=== PATIENT | male | born 1985 | race Caucasian/White ===

== ENCOUNTER 2017-03-29 11:41 | Day surgery (SDC) | payer OTHER ==
[~2017-03-29] VITALS: Ht 188 cm; Wt 123.4 kg
[2017-03-29] VITALS (7 sets, daily range): BP systolic 112–142; BP diastolic 61–86; PULSE 69–107; RESP 15–25; O2SAT 90–98
[2017-03-29] MEDS ORDERED: Rocuronium 10 mg/mL 5 mL Inj ONE (11:42)
[2017-03-29] MEDS ORDERED: Glycopyrrolate 0.2 MG/ML 1mL Inj ONE (11:42)
[2017-03-29] MEDS ORDERED: Propofol 10,000 mCg/mL 20 mL Inj ONE (11:42)
[2017-03-29] MEDS ORDERED: MetoCLOpramide 5 mg/mL 2 mL Inj ONE (11:42)
[2017-03-29] MEDS ORDERED: fentaNYL-PF 50 mCg/mL 2 mL Inj ONE (11:42)
[2017-03-29] MEDS ORDERED: Ondansetron 2 mg/mL 2 mL Inj ONE (11:42)
[2017-03-29] MEDS ORDERED: Neostigmine 1 mg/mL 10 mL Inj ONE (11:42)
[2017-03-29] MEDS ORDERED: Lactated Ringer's 1,000 ML IV ONE ×3 (11:49→14:48)
[2017-03-29] MEDS ORDERED: Insulin Human REGular-Omnicell 100 Unit/mL ONE (12:42)
[2017-03-29] MEDS ORDERED: Ampicillin-Sulbactam Inj 3,000 MG in 0.9% Sodium Chloride 100 ML IV SCH (12:45)
[2017-03-29] MEDS ORDERED: Insulin Human REGular-Omnicell 100 Unit/mL SUBQ ONE (12:45)
--- NOTE | 2017-03-29 13:05 | HP ---
[address] [address] HISTORY AND PHYSICAL PATIENT: JOSETTE GUADALUPE : 1985 MR#: [id number] ADMIT: 03/29/2017 JOB ID: [id number] HISTORY OF PRESENT ILLNESS: Patient seen for decision to operate. A 32-year-old man, previously healthy, had onset of generalized abdominal pain yesterday that has persisted through the night and into today. He went to Urgent Care, where he was evaluated by HARRIETT Wise. She noted right lower quadrant tenderness and a leukocytosis. A CT scan was obtained, consistent with appendicitis with a fecalith. He has never had similar symptoms. He has no history of abdominal operations and has never had an operation. PAST MEDICAL HISTORY: Illnesses: Obesity. Medications: None. ALLERGIES: None. HABITS: Tobacco: None. OPERATIONS: None. SOCIAL HISTORY: He has a significant other, Reyna. They live together and they have a daughter together. She is very supportive. FAMILY HISTORY: Noncontributory. REVIEW OF SYSTEMS: Otherwise negative. PHYSICAL EXAMINATION: BMI 35. He is alert. No distress, but appropriately somewhat anxious. HEENT: PERRLA, EOMI no scleral icterus. Neck: No masses trachea midline. Lungs: Clear. Cardiac exam: Regular rhythm. No murmurs or gallops appreciated. Abdomen: He is obese. He has right lower quadrant tenderness. No other abdominal tenderness. Extremities: No edema. Skin: No rashes. Neurologic exam: Appropriate affect. No obvious cranial nerve deficits. He wears glasses. Moves all extremities. Gait not tested. LABORATORY RESULTS: White count 19,000, hematocrit is 48. His glucose is 244. CT scan personally reviewed by myself and I agree with the interpretation. IMPRESSION: 1. Appendicitis. I discussed options with the patient. He does have a fecalith and I have recommended proceeding with a laparoscopic, possible open, appendectomy. He understands that operative risks include, but are not limited to, bleeding, infection, injury to adjacent organs such as the small bowel, colon, and ureter. I also discussed the typical recovery. 2. Elevated glucose. We will need to start insulin during the operation. I urged him to get a primary care physician for appropriate postoperative followup. I expect he will be able to go home today as it is early afternoon and I discussed the typical recovery. The patient agrees with the above plan.
[2017-03-29] MEDS ORDERED: Lactated Ringer's 1,000 ML IV SCH (13:19)
[2017-03-29] MEDS ORDERED: Lactated Ringer's 500 ML IV PRN (13:19)
[2017-03-29] MEDS ORDERED: MetoCLOpramide 5 mg/mL 2 mL Inj IVPUSH PRN (13:20)
[2017-03-29] MEDS ORDERED: Ondansetron 2 mg/mL 2 mL Inj IVPUSH PRN (13:20)
[2017-03-29] MEDS ORDERED: EPHEDrine Sulfate 50 mg/mL Inj IVPUSH PRN (13:20)
[2017-03-29] MEDS ORDERED: fentaNYL-PF 50 mCg/mL 2 mL Inj IVPUSH PRN (13:20)
[2017-03-29] MEDS ORDERED: HYDROmorphone 1 mg/mL Inj IVPUSH PRN (13:20)
[2017-03-29] MEDS ORDERED: Phenylephrine 10,000 mCg/mL Inj IVPUSH PRN (13:20)
[2017-03-29] MEDS ORDERED: Dexamethasone 4 mg/mL Inj IVPUSH PRN (13:20)
--- NOTE | 2017-03-29 13:21 | PCM.HPANE ---
Patient Data Surgeon Admitting Provider: Attending Provider:Manuel Ludwig MD Primary Care Physician:Nadeem Other Provider:Pepito Dover Anesthesia Reason for Visit Appendicitis Ht/WT & BMI Height (Feet): 6 Height (Inches): 2 Weight (Kilograms): 123.4 Body Mass Index 34.00 Allergies Coded Allergies: No Known Allergies (Unverified , 03/29/17) Past Anesthesia History Anesthesia History: Denies:: Fam Anesthesia Reaction, Fam Malignant Hypertherm Diabetes History Hx Diabetes?: No MRSA MRSA: No Medications Hypertension Medication: No Home Meds Incl Beta Idania: No No Active Prescriptions or Reported Meds History History of ENT Problems?: No HEENT History: Denies:: Cataracts Glaucoma Hearing Problem Denture Type: None Teeth Condition: Missing Teeth Hx of Heart Problems?: Yes Cardiovascular History: Positive for:: Chest Pain Denies:: Atrial Fibrillation Heart Murmur Hypertension Irregular Heartbeat Pacemaker Thrombophlebitis Hx of Respiratory Problem?: No Respiratory History: Denies:: Asthma COPD Emphysema Oxygen Administration Tuberculosis Use of C-PAP Machine Use of Inhalers / NEBS Hx Neurologic Problems?: No Neurological History: Denies:: Dizziness Headaches Multiple Sclerosis Parkinson's Disease Seizures TIA Hx of GI Problems?: Yes Hx of Problems?: No Male Hx: Denies:: Prostate Problems Testicular Surgery Skin History: Denies:: History Skin Disorders? Pressure Ulcers Hx Musculoskeletal Problems?: No Musculoskeletal History: Denies:: Back Injury Fibromyalgia Osteoarthritis Rheumatoid Arthritis Hx of Psycho/Social Problems?: No Psycho Social History: Denies:: Anxiety Bipolar Disorder Hx Depression Hx Surgeries?: No Hx Any Other Health Problems?: No Other History: Denies:: Cancer Endocrine Disease Hospitalization Thyroid Disease History Blood Transfusions: Positive for:: Accept Blood Products? Hx Diabetes: No Hx Alcohol Use: NoHx Substance Use: NoHave You Smoked inLast 12 mo: No Stop/Bang S-Snoring: Do You Snore Loudly: Yes T-Tired: feel tired, fatigued: No O-Obsered: Observed not breath: Yes P-Blood Pressure: treated: No B- Body Mass Index > 35 kg/m2: Yes A- Age over 50: No N- Neck Large Circumference: Yes G- Gender Male: Yes OSMANI Total Score: 5 OSMANI Category 2: Yes Risk Assessment Category Category 1A: Patient has history of documented sleep apnea, and HAS NOT received any narcotic, sedative or anesthesia administration during this stay. Category 1B: Patient has history of documented sleep apnea, and HAS received any narcotic , sedative or anesthesia administration during this stay Category 2: Patient has SUSPECTED Obstructive Sleep Apnea, and HAS received any narcotic , sedative or anesthesia administration during this stay. Category 3: Patient has SUSPECTED Obstructive Sleep Apnea and HAS NOT received narcotic, sedative or anesthesia administration during this stay. Category 4: Outpatient in Procedural Areas with known sleep apnea or who screen positive for High Risk via the STOP/BANG questionnaire. Exam Exam General Appearance: Alert, Oriented X3, Cooperative, No Acute Distress HEENT/AIRWAY: MP 3 Lungs: Clear to Auscultation Heart: Exam Unremarkable Meds/Labs/Diagnostics Admission Meds Current Medications Lactated Ringer's (Lr) 1,000 ml @ ud STK-MED ONCE IV Last administered on 03/29t 11:49; Start 03/29/17 at 11:49; Stop 03/29/17 at 11:50; Status DC Plan Impression Patient chart reviewed, patient interviewed and anesthestic plan with risks, benefits, and alternatives discussed, and informed consent obtained. ASA Physical Status: ASA2 Mod Systemic Disease Anesthetic Plan: GA Bene/Risks/Altern/Consents: Yes HP Complete Prior to Induction: Yes Yahir Conti MD Mar 29, 2017 12:32
[2017-03-29] MEDS ORDERED: Bupivacaine-MPF 0.5% 30 mL Inj INFILTRATE ONE (13:34)
--- NOTE | 2017-03-29 15:04 | PCM.ANEP1 ---
Post Anesthesia PACU Phase 1 Assessment Vital Signs Vital Signs Date Time Temp Pulse Resp B/P Pulse Ox O2 Delivery O2 Flow Rate FiO2 03/29/17 12:40 36.1 107 18 139/86 95 Room Air Anesthetic Administered: GA Level of Alertness: Sleepy, easy to arouse JUÁREZ's with Equal Strength: Yes Pain: No Nausea or Vomiting: No CV Function & Hydration Stable: Yes Airway Device: Oxygen Delivery: Simple Mask Lungs: Clear to Auscultation Dermatome Level: Full Sensation PACU Phase 2 Assessment Complications: No Patient Instructions Provided: N/A Yahir Conti MD Mar 29, 2017 15:04
[2017-03-29] MEDS ORDERED: HYDROcodone-APAP 5-325 mg Tablet PO PRN (15:05)
[2017-03-29] MEDS ORDERED: Insulin LISPRO 300 Unit/3 mL Inj SUBQ ONE (15:10)
--- NOTE | 2017-03-29 15:34 | OP ---
[address] [address] OPERATIVE REPORT PATIENT: JOSETTE GUADALUPE : 1985 MR#: [id number] ADMIT: 03/29/2017 JOB ID: [id number] DATE OF SURGERY: 03/29/2017 PREOPERATIVE DIAGNOSIS(ES): Appendicitis. POSTOPERATIVE DIAGNOSIS(ES): Appendicitis. OPERATION: Laparoscopic appendectomy. SURGEON: Manuel Ludwig MD. NATIONAL [employer] ANALYST: 1. Alexx Guillen PA-C. 2. Issa Lechuga PA-C. INDICATIONS: A 32-year-old man with a 24-hour history of abdominal pain. Presented to Urgent Care today where he was evaluated by HARRIETT Wise. She noted right lower quadrant tenderness. A CT scan was consistent with appendicitis, and after discussing options with the patient, it was elected to proceed with a laparoscopic, possible open appendectomy. FINDINGS: He had acute suppurative appendicitis. The appendix was quite swollen. It had not ruptured and did not rupture during the course of the dissection, but I think would have within 24 hours. He had a very thickened mesoappendix. He is morbidly obese, which contributed to that. The base of the appendix was normal. The cecum and terminal ileum appeared normal. DESCRIPTION OF PROCEDURE: At the beginning and end of the operation, the SCOAP checklist was completed. A general endotracheal anesthetic was induced. A [place] catheter was inserted and it was removed at the end of the operation. He received IV antibiotics. He had on pneumatic hose. Preoperatively, his glucose was 244. He has no known diagnosis of diabetes and he was given insulin by Dr. Yahir Simpson from anesthesia. Using ChloraPrep, he was prepped and draped in the usual fashion. He received 0.5% bupivacaine at all trocar sites. An infraumbilical incision was made. The abdominal cavity was entered, a cannula inserted. The abdomen insufflated with CO2. Accessory 5 mm working ports were placed in the left lower quadrant in the lower midline under direct visualization. The appendix was identified. The fat pad of Treves was mobilized off of it, as it was adherent to it. The mesoappendix was fused with the retroperitoneum, and using cautery, the lateral aspect of it was elevated. But then it was appreciated how thick the mesoappendix was, and so I elected to expose the base of the appendix and divide it and then divide the mesoappendix. In order to mobilize and expose the base of the appendix, I had to mobilize the lateral aspect of the cecum by incising the lateral peritoneal reflection which I did with cautery. With that I was able to elevate the cecum and the base of the appendix and then create with blunt dissection a window directly behind the appendix, and then using a laparoscopic ARTURO with a visceral load, divide the base of the appendix. In order to divide the mesoappendix (and I elected to use a vascular staple load), I had to up-size the lower midline 5 mm trocar to a 12 mm trocar, which was done under direct visualization. Even doing that in order to get a good angle on the mesoappendix, I had to use two loads to divide it. After completing that, the specimen was placed into a specimen bag. There was momentary bleeding from one staple line, but this was observed several times before I concluded the operation and it spontaneously stopped. The right lower quadrant and pelvis were irrigated with saline and aspirated. I again carefully inspected all staple lines. There was no evidence of bleeding and the staple line on the mesoappendix was secure. The suprapubic 12 mm trocar site was closed with 0-Vicryl under direct visualization in the fascia. The specimen bag was removed through the umbilical port and sent to Pathology and the appendix was sent to Pathology. All ports were removed without evidence of bleeding. The umbilical fascial incision was closed with interrupted 0-Vicryl. The umbilical port subcutaneous tissue was irrigated with sterile saline. Skin incisions closed with subcuticular 4-0 Vicryl. Steri-Strips and Band-Aids were applied. Estimated blood loss 10 cc. No apparent complications. The final sponge, needle, and instrument counts were announced as correct, and the patient was returned to recovery room in stable condition. Critical assistance was provided by Alexx Guillen PA-C, and Issa Lechuga PA-C, without whose assistance the operation could not be safely completed.
--- NOTE | 2017-04-01 14:14 | PATH ---
SURGICAL PATHOLOGY Attending Physician:Marybel Thayer CASE STATUS: Signed Out PATIENT NAME: JOSETTE GUADALUPE PID: [id number] : 1985 DATE COLLECTED:03/29/2017 00:00 SPECIMEN: Appendix CLINICAL HISTORY: ACUTE APPENDICITS 1). APPENDIX FINAL DIAGNOSIS: 1.APPENDIX: ACUTE SUPPURATIVE APPENDICITIS AND PERITONITIS. NO EVIDENCE OF MALIGNANCY. ICD10 K35.80 GROSS DESCRIPTION: The specimen is received in formalin, labeled with the patient's name, sublabeled as appendix, and consists of an intact appendix (length-8.8 cm, diameter-1.0 cm) with attached mesoappendix (up to 2.2 cm in depth). The resection margin is received stapled. The serosa is frankel-brown smooth and shiny and covered in frankel flaky friable exudate. The lumen contains pacheco-orange solid soft and partially material. The wall is up to 0.2 cm thick. No nodules, masses or lesions are identified. Ink code: black-proximal. 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 03/31/17 JM MICRO DESCRIPTION: See diagnosis. ICD-9 CODES: CPT CODES: 1: 47786 Electronically Signed Out Dakotah Conley MD [facility] Pathology [facility] [address], [place] [address] Technical component performed at [facility], [facility] [address], [place], [address]
== END 2017-03-29 23:59 | disposition home or self-care (01) ==
LOC: SAS 11:41
PROVIDERS: ATTEND Surgery
PROC: 0DTJ4ZZ Resection of Appendix, Percutaneous Endoscopic Approach (ICD-10-PCS; principal; 2017-03-29 12:45)
DX: K35.80 Unspecified acute appendicitis (principal); R73.9 Hyperglycemia, unspecified
CPT/HCPCS: 44970; J0295; J1815; J1885; J2250; J2405; J2710; J2765; J3010; J7120